=== PATIENT | female | born 1980 | race Caucasian/White ===

== ENCOUNTER 2019-05-12 12:35 | Emergency (ER) | payer OTHER, MEDICAID ==
[~2019-05-12] VITALS: Ht 170.2 cm; Wt 56.7 kg
[~2019-05-12 12:35] MED LIST: AMOXICILLIN500 M1 PO; CLEOCIN HCL150 MG PO; IBUPROFEN 800800 M1 PO; LIDOCAINE VISC100 M1 SWISH&SPIT; ONDANSETRON HCL4 M2 PO; TRAMADOL 50 MG50 MG PO
[2019-05-12 12:48] VITALS: BP 98/69
[2019-05-12 13:01] LABS: INFLUENZA A ANTIGEN Negative (Negative)
[2019-05-12] MEDS ORDERED: BENZONATATE200 MG PO (13:06)
== END 2019-05-12 13:27 | disposition home or self-care (01) ==
LOC: M.ERS 12:35
PROVIDERS: Nurse Practitioner Family
DX: J10.1 Influenza due to other identified influenza virus with other respiratory manifestations (principal); J45.909 Unspecified asthma, uncomplicated; F17.210 Nicotine dependence, cigarettes, uncomplicated

== ENCOUNTER 2020-11-09 15:55 | Emergency (ER) | payer OTHER, MEDICAID ==
[~2020-11-09] VITALS: Ht 172.7 cm; Wt 58.5 kg
--- NOTE | ~2020-11-09 | EMS ---
[facility] [address] [place] [address] EMS Patient Care Report Name: MAGALI ARTEAGA Room: [facility]#: [id number] Admission: 11/09/20 Attend Phys: Discharge: Date of : 82 Report #: [id number] THIS REPORT FOR: //name// Report Transmitted: 11/09/2020 16:18 EMS Care Summary [facility] Incident [id number] @ 11/09/2020 15:06 Incident Location [address] [place] [address] Patient Magali Arteaga Female, 40 Years 1980 Patient Address [address] [facility] [facility], [facility] Patient History Anxiety disorder, unspecified, Patient Allergies No known allergies, Patient Medications Magnesium, Chief Complaint Shortness of Breath Disposition Transported No Lights/[place] Dispatch Reason Breathing Problem Transported To [facility] Narrative [id number] dispatched to the parking lot of [facility] for shortness of breath. On scene, ems was met by ifd with a 40 yof complaining of shortness of air and chest tightness. Pt states she was getting gas when she began to feel her chest "tighten up" and shortness of air. pt states she became flushed and [facility] [address] [place] [address] EMS Patient Care Report Name: MAGALI ARTEAGA Room: [facility] Victor M#: [id number] Admission: 11/09/20 Attend Phys: Discharge: Date of : 82 Report #: [id number] light-headed but denies feeling like passing out. Pt describes chest tightness as a "pressure" in her chest to her epigastric area, states it felt like gas and acid build up. pt states she had belched and felt relief shortly after. Pt states she has a history of panic attacks and anxiety, states she does not take any prescription medications. Pt states she takes magnesium tablets for her anxiety and claims her body does not produce "enough magnesium." Pt states she has been experiencing an increase in stress at home and states "i haven't been taking care of myself" lately. Pt states she has not been juicing, drinking a lot of water and eating regular meals. Pt states she has seen a juvenile officer in the past and was told she experiences PVC's. Pt denies any chest px, current soa, nausea/vomiting, dizziness, headache, fever, chills, cough. Upon arrival, pt was found sitting in the special client bus driver seat of her vehicle with ifd alongside. pt was awake alert and oriented, airway was patent and clear, breathing was normal and regular - non labored, circulation was normal and regular, skin pink warm dry, physical assessment as noted with no obvious signs of trauma. bsi, pt contact, abcs, vitals obtained, 12 lead, pt stood and pivoted to [facility] and secured, pt loaded into unit and locked in place, vitals repeated, blood glucose, transport initiated, pt reassessed, pt remained stable with no changes to current condition, at destination pt was unloaded from unit and wheeled into ed, pt stood and pivoted from gurney to ed bed, verbal report given and pt care transferred to rn at receiving facility. [id number] returned to service without incident. Initial Vitals @15:44SpO2: 99, @15:48SpO2: 100, @15:24 @15:20P: 76,R: 18,BP: 126/71, @15:34P: 76,R: 18,BP: 146/88, @15:44P: 84,R: 18,BP: 133/78, @PTAP: 70,R: 18,BP: 132/P, @15:20GCS: 15, @15:34GCS: 15, @15:44GCS: 15, @BOXING INSTRUCTOR @15:34Glucose: 117, Assessments @15:17MENTAL:SKIN:HEENT:LUNG SOUNDS:ABDOMEN:PELVIS//GI:EXTREMITIES:PULSE:NEURO: Impression Anxiety reaction/Emotional upset Procedures @15:2412-Lead ECGResponse: [place] [address] EMS Patient Care Report Name: MAGALI ARTEAGA Cherry Room: [facility]#: [id number] Admission: 11/09/20 Attend Phys: Discharge: Date of : 82 Report #: [id number] Timeline BOXING INSTRUCTOR,BP: 132/P M,PULSE: 70,RR: 18 R,SPO2: Ox,ETCO2: ,BG: ,PAIN: ,GCS: , BOXING INSTRUCTOR,BP: / M,PULSE: ,RR: R,SPO2: Ox,ETCO2: ,BG: ,PAIN: ,GCS: , 15:05,Call Received 15:05,Dispatch Notified 15:05,Psap Call 15:06,Dispatched 15:06,En Route 15:16,On Scene 15:17,At Patient 15:20,BP: 126/71 M,PULSE: 76,RR: 18 R,SPO2: Ox,ETCO2: ,BG: ,PAIN: ,GCS: , 15:20,BP: / M,PULSE: ,RR: R,SPO2: Ox,ETCO2: ,BG: ,PAIN: ,GCS: 15, 15:24,12-Lead ECG,Response: UnchangedSucceeded, 15:24,BP: / M,PULSE: ,RR: R,SPO2: Ox,ETCO2: ,BG: ,PAIN: ,GCS: , 15:34,BP: 146/88 M,PULSE: 76,RR: 18 R,SPO2: Ox,ETCO2: ,BG: ,PAIN: ,GCS: , 15:34,BP: / M,PULSE: ,RR: R,SPO2: Ox,ETCO2: ,BG: ,PAIN: ,GCS: 15, 15:34,BP: / M,PULSE: ,RR: R,SPO2: Ox,ETCO2: ,B,PAIN: ,GCS: , 15:38,Depart Scene 15:44,BP: / M,PULSE: ,RR: R,SPO2: 99 Ox,ETCO2: ,BG: ,PAIN: ,GCS: , 15:44,BP: 133/78 M,PULSE: 84,RR: 18 R,SPO2: Ox,ETCO2: ,BG: ,PAIN: ,GCS: , 15:44,BP: / M,PULSE: ,RR: R,SPO2: Ox,ETCO2: ,BG: ,PAIN: ,GCS: 15, 15:48,BP: / M,PULSE: ,RR: R,SPO2: 100 Ox,ETCO2: ,BG: ,PAIN: ,GCS: , 15:51,At Destination 16:04,Call Closed Disclaimer v1.1 Copyright 2020 [employer] This EMS Care Summary contains data elements from the applicable legal record (which may be displayed differently). It is designed to provide pertinent information for the following purposes: continuity of care, clinical quality, and state data reporting. The complete legal record is available to ED staff and administrators of the receiving hospital in [employer]'s Patient Tracker. All data is provided "as is."
[~2020-11-09 15:55] MED LIST changes: +BENZONATATE200 MG PO
[2020-11-09] MEDS ORDERED: MAGNESIUM250 M1 PO (16:05)
[2020-11-09 16:40] LABS: ABSOLUTE EOSINOPHILS 0.1 thou/uL (0.0-0.7); ABSOLUTE LYMPHOCYTES 1.7 thou/uL (0.8-5.3); ABSOLUTE MONOCYTES 0.4 thou/uL (0.0-1.2); ABSOLUTE NEUTROPHILS 2.9 thou/uL (1.6-8.1); BASOPHILS 0.7 %; EOSINOPHILS 1.9 %; HEMATOCRIT 37.3 % (37.0-47.0); HEMOGLOBIN 12.8 gm/dL (12.0-15.0); LYMPHOCYTES 33.1 %; MCH 31.3 pg (26.0-34.0); MCHC 34.4 g/dL (28.0-37.0); MCV 91.2 fL (80.0-100.0); MONOCYTES 8.1 %; MPV 7.8 fl. (7.2-11.1); NUCLEATED RBCS 0 /100WBC; PLATELET COUNT* 277 thou/uL (150-400); POLYS 56.2 %; RBC 4.08 mil/uL (4.20-5.00); WBC 5.2 thou/uL (4.0-11.0)
[2020-11-09 16:45] LABS: CALCIUM 8.5 mg/dL (8.5-10.1); CREATININE 0.7 mg/dL (0.6-1.3); POTASSIUM 3.9 mmol/L (3.5-5.1)
[2020-11-09 16:50] LABS: ALBUMIN 4.2 g/dL (3.4-5.0); MAGNESIUM 1.9 mg/dL (1.8-2.4); TOTAL BILIRUBIN 0.4 mg/dL (<0.1-1.0); TOTAL PROTEIN 6.8 g/dL (6.4-8.2)
[2020-11-09 19:14] VITALS: BP 109/72
[2020-11-09] MEDS ORDERED: ATIVAN0.5 M1 PO (21:20)
--- NOTE | 2020-11-10 15:26 | EKG ---
[place] [address] ELECTROCARDIOGRAM REPORT Name: MONSEZOE Cherry Room: [facility]#: [id number] Admission: 11/09/20 Attend Phys: Discharge: 11/09/20 Date of : 82 Date of Service: 11/09/20 163 Report #: [id number] THIS REPORT FOR: //name// [facility] ED Test Date: 2020-11-09 Test Time: 16:32:23 Pat Name: ZOE SHEA Department: Room: Gender: Configuration Management Advisor: BETTE : 1980 Requested By: Timothy Eid Order Number: [id number] MD: Terrance Camarillo Measurements Intervals [place] Rate: 64 P: 80 NM: 160 QRS: 44 QRSD: 98 T: 49 QT: 396 QTc: 409 Interpretive Statements Sinus rhythm normal ECG since prior tracing no significant change Electronically Signed On 11-10-2020 15:26:13 CDT by Terrance Camarillo [email or web address] <ELECTRONICALLY SIGNED> By: Terrance Camarillo MD, [facility] 11/10/20 1526 31 31 Terrance Camarillo MD, FACC /EPI
--- NOTE | 2020-11-10 15:29 | EKG ---
[place] [address] ELECTROCARDIOGRAM REPORT Name: ROLANDOCHANTELLZOE Cherry Room: [facility]#: [id number] Admission: 11/09/20 Attend Phys: Discharge: 11/09/20 Date of : 82 Date of Service: 11/09/201827 Report #: [id number] THIS REPORT FOR: //name// [facility] ED Test Date: 2020-11-09 Test Time: 18:28:15 Pat Name: ZOE SHEA Department: Room: Gender: F Rn Cardiac Cath: BETTE : 1980 Requested By: Timothy Eid Order Number: [id number] MD: Terrance Camarillo Measurements Intervals [place] Rate: 59 P: 69 IA: 154 QRS: 49 QRSD: 96 T: 47 QT: 413 QTc: 410 Interpretive Statements Sinus rhythm Multiple ventricular premature complexes Baseline wander in lead(s) I,III,aVL Compared to ECG 11/09/2020 16:32:23 Ventricular premature complex(es) now present Electronically Signed On 11-10-2020 15:29:19 CDT by Terrance Camarillo [email or web address] <ELECTRONICALLY SIGNED> By: Terrance Camarillo MD, [facility] 11/10/20 1529 182 27 Terrance Camarillo MD, [facility] /EPI
== END 2020-11-09 19:15 | disposition home or self-care (01) ==
LOC: M.ERS 15:55
PROVIDERS: Emergency Medicine Emergency Medical Services
DX: R07.89 Other chest pain (principal); J45.909 Unspecified asthma, uncomplicated; F17.210 Nicotine dependence, cigarettes, uncomplicated

== ENCOUNTER 2020-11-09 20:37 | Emergency (ER) | payer OTHER, MEDICAID ==
[~2020-11-09] VITALS: Ht 172.7 cm; Wt 59.0 kg
[~2020-11-09 20:37] MED LIST changes: +MAGNESIUM250 M1 PO
[2020-11-09] MEDS ORDERED: ATIVAN0.5 M1 PO (21:20)
[2020-11-09 22:15] VITALS: BP 117/72
== END 2020-11-09 22:16 | disposition home or self-care (01) ==
LOC: M.ERS 20:37
DX: F41.9 Anxiety disorder, unspecified (principal); J45.909 Unspecified asthma, uncomplicated; F17.210 Nicotine dependence, cigarettes, uncomplicated